=== PATIENT | male | born 1945 | race African-American/Black ===

== ENCOUNTER 2022-12-22 16:21 | Inpatient (IN) | payer OTHER ==
[~2022-12-22] VITALS: Ht 182.9 cm; Wt 60.8 kg
[2022-12-22] MEDS ORDERED: CLONIDINE 0.2MG TABLET PO ONE (17:00)
[2022-12-22] MEDS ORDERED: SODIUM CHLORIDE 0.9% 1,000 ML IV ONE (17:00)
[2022-12-22 19:57] LABS: BASOPHILS % 1.3 % (0.0-2.0); EOSINOPHILS % 0.8 % (0.0-5.0); HEMATOCRIT. 42.9 % (42.0-52.0); LYMPHOCYTES % 14.2 % (20.0-50.0); MEAN CORPUSCULAR HEMOGLOBIN 32.9 pg (28.0-32.0); MEAN CORPUSCULAR VOLUME 101.1 fL (80.0-94.0); MEAN PLATELET VOLUME 10.8 fl (7.4-10.4); MONOCYTES % 10.4 % (2.0-8.0); NEUTROPHILS % 73.3 % (40.0-76.0); PLATELET 185 x1000/uL (130-400); RED BLOOD CELL COUNT 4.25 mill/uL (4.7-6.1); RED CELL DISTRIBUTION WIDTH 16.3 % (11.6-14.6)
[2022-12-22 20:02] LABS: CHLORIDE 102 mEq/L (98-107)
[2022-12-22] MEDS ORDERED: CLONIDINE 0.1MG TABLET PO NR (21:00)
[2022-12-22] MEDS ORDERED: ASPIRIN 81MG TABLET PO ONE (21:15)
[2022-12-23] MEDS ORDERED: ONDANSETRON HCL 4MG/2ML INJ IV PRN (01:15)
[2022-12-23] MEDS ORDERED: MAGNESIUM/ALUMINUM HYDROXIDE/SIMETHICONE 30ML UDC PO PRN (01:15)
[2022-12-23] MEDS ORDERED: GUAIFENESIN 200MG/10ML SUGAR FREE UDC PO PRN (01:15)
[2022-12-23] MEDS ORDERED: DOCUSATE SODIUM 100MG CAPSULE PO PRN (01:15)
[2022-12-23] MEDS ORDERED: IPRATROPIUM/ALBUTEROL 0.5-3(2.5)MG/3ML NEB HHN PRN (01:15)
[2022-12-23] MEDS ORDERED: ACETAMINOPHEN 650MG SUPP PR PRN (01:15)
[2022-12-23] MEDS ORDERED: HYDRALAZINE 20MG/ML VIAL IV PRN (01:30)
[2022-12-23 02:30] VITALS: BP 191/91; PULSE 77; RESP 18; TEMP 97.8
[2022-12-23 04:00] VITALS: BP 164/70; PULSE 68; RESP 18; TEMP 98.2
[2022-12-23] MEDS: DEXT 5%/0.45% NACL 1000ML 1,000 ML IV SCH ×2 (05:45→14:53)
[2022-12-23] MEDS: HYDRALAZINE 20MG/ML VIAL IV SCH ×3 (07:30→21:33)
[2022-12-23 08:00] VITALS: BP 154/74; PULSE 79; RESP 20; TEMP 97.6
[2022-12-23] MEDS: AMLODIPINE 5MG TABLET PO SCH (08:35)
[2022-12-23] MEDS: FAMOTIDINE 20MG/2ML VIAL IV SCH (08:35)
[2022-12-23 10:04] LABS: BASOPHILS % 2.7 % (0.0-2.0); EOSINOPHILS % 0.6 % (0.0-5.0); HEMATOCRIT. 43.7 % (42.0-52.0); HEMOGLOBIN. 14.6 g/dL (14.0-18.0); LYMPHOCYTES % 13.1 % (20.0-50.0); MEAN CORPUSCULAR HEMOGLOBIN 33.5 pg (28.0-32.0); MEAN CORPUSCULAR VOLUME 100.4 fL (80.0-94.0); MEAN PLATELET VOLUME 11.6 fl (7.4-10.4); MONOCYTES % 11.2 % (2.0-8.0); NEUTROPHILS % 72.4 % (40.0-76.0); PLATELET 190 x1000/uL (130-400); RED BLOOD CELL COUNT 4.35 mill/uL (4.7-6.1); RED CELL DISTRIBUTION WIDTH 16.4 % (11.6-14.6)
[2022-12-23 10:17] LABS: INR 1.1; PROTHROMBIN TIME 11.3 sec (9.6-11.0)
[2022-12-23 10:23] LABS: CHLORIDE 101 mEq/L (98-107)
[2022-12-23 10:39] LABS: HDL CHOLESTEROL 94 mg/dL (40-59); LDL CHOLESTEROL 100 mg/dL (5-100); T4 FREE 0.96 ng/dL (0.76-1.46)
[2022-12-23 11:37] LABS: FOLIC ACID (FOLATE) SERUM 15.6 ng/mL (>5.38)
[2022-12-23 12:00] VITALS: BP 176/76; PULSE 82; RESP 20; TEMP 98
[2022-12-23 12:39] LABS: HEPATITIS B SURFACE ANTIGEN NEGATIVE
[2022-12-23 16:00] VITALS: BP 140/69; PULSE 71; RESP 20; TEMP 98
[2022-12-23 20:00] VITALS: BP 180/77; PULSE 82; RESP 20; TEMP 98.6
[2022-12-23] MEDS: ENOXAPARIN 30MG/0.3ML SYR SUBCUT SCH (20:23)
[2022-12-24] VITALS (15 sets, daily range): BP systolic 109–197; BP diastolic 52–99; PULSE 86–114; RESP 16–20; TEMP 97.7–101.8
[2022-12-24] MEDS: DEXT 5%/0.45% NACL 1000ML 1,000 ML IV SCH ×2 (01:00→14:27)
[2022-12-24] MEDS: HYDRALAZINE 20MG/ML VIAL IV SCH ×4 (01:30→21:09)
[2022-12-24 06:34] LABS: HEMATOCRIT. 44.6 % (42.0-52.0); HEMOGLOBIN. 15.3 g/dL (14.0-18.0); MEAN CORPUSCULAR VOLUME 99.1 fL (80.0-94.0); MEAN PLATELET VOLUME 11.5 fl (7.4-10.4); PLATELET 220 x1000/uL (130-400); RED CELL DISTRIBUTION WIDTH 16.6 % (11.6-14.6)
[2022-12-24] MEDS: AMLODIPINE 5MG TABLET PO SCH (08:23)
[2022-12-24] MEDS: FAMOTIDINE 20MG/2ML VIAL IV SCH (08:23)
[2022-12-24] MEDS: CLONIDINE 0.1MG TABLET PO PRN (21:09)
[2022-12-24] MEDS: ACETAMINOPHEN 325MG TABLET PO PRN (21:09)
[2022-12-24] MEDS: ENOXAPARIN 30MG/0.3ML SYR SUBCUT SCH (21:10)
[2022-12-25] VITALS (7 sets, daily range): BP systolic 154–185; BP diastolic 72–87; PULSE 83–111; RESP 20; TEMP 97.9–101.3
[2022-12-25 03:51] LABS: PLATELET ESTIMATE NORMAL
[2022-12-25] MEDS: HYDRALAZINE 20MG/ML VIAL IV SCH ×4 (03:53→17:52)
[2022-12-25] MEDS: AMLODIPINE 5MG TABLET PO SCH (08:44)
[2022-12-25] MEDS: CLONIDINE 0.1MG TABLET PO PRN ×2 (12:36→20:19)
[2022-12-25] MEDS: DEXT 5%/0.45% NACL 1000ML 1,000 ML IV SCH (12:36)
[2022-12-25 15:46] LABS: HEMATOCRIT. 43.6 % (42.0-52.0); HEMOGLOBIN. 14.4 g/dL (14.0-18.0); MEAN CORPUSCULAR VOLUME 99.8 fL (80.0-94.0); PLATELET 240 x1000/uL (130-400); RED BLOOD CELL COUNT 4.37 mill/uL (4.7-6.1); RED CELL DISTRIBUTION WIDTH 16.6 % (11.6-14.6)
[2022-12-25 16:26] LABS: PLATELET ESTIMATE NORMAL
[2022-12-25] MEDS: ENOXAPARIN 30MG/0.3ML SYR SUBCUT SCH (20:19)
[2022-12-25] MEDS: ACETAMINOPHEN 325MG TABLET PO PRN (20:19)
[2022-12-26] VITALS (12 sets, daily range): BP systolic 95–163; BP diastolic 55–89; PULSE 66–102; RESP 17–20; TEMP 97–98.4; O2SAT 98
[2022-12-26] MEDS: HYDRALAZINE 20MG/ML VIAL IV SCH ×4 (01:30→20:59)
[2022-12-26 05:19] LABS: HEMATOCRIT. 44.3 % (42.0-52.0); HEMOGLOBIN. 14.4 g/dL (14.0-18.0); MEAN CORPUSCULAR VOLUME 101.8 fL (80.0-94.0); PLATELET 201 x1000/uL (130-400); RED BLOOD CELL COUNT 4.35 mill/uL (4.7-6.1); RED CELL DISTRIBUTION WIDTH 16.8 % (11.6-14.6)
[2022-12-26] MEDS ORDERED: FAMOTIDINE 20MG/2ML VIAL IV SCH (09:00)
[2022-12-26] MEDS: AMLODIPINE 5MG TABLET PO SCH (10:30)
[2022-12-26 13:09] LABS: PLATELET ESTIMATE NORMAL
[2022-12-26] MEDS: DEXT 5%/0.45% NACL 1000ML 1,000 ML IV SCH (13:18)
[2022-12-26] MEDS: ENOXAPARIN 30MG/0.3ML SYR SUBCUT SCH (20:59)
== END 2022-12-26 23:53 | disposition short-term general hospital (02) | DRG 91 ==
LOC: ER 16:21 → 8WST 21:07 → EDBEDREQ 21:21 → ENRESERV 12-23 00:31 → 8WST 12-25 18:58
PROVIDERS: ADMIT Internal Medicine; ATTEND Internal Medicine
PROC: 5A1D70Z Performance of Urinary Filtration, Intermittent, Less than 6 Hours Per Day (ICD-10-PCS; principal; 2022-12-24)
PROC: 5A1D70Z Performance of Urinary Filtration, Intermittent, Less than 6 Hours Per Day (ICD-10-PCS; 2022-12-26)
DX: G92.8 Other toxic encephalopathy (principal); N18.6 End stage renal disease; U07.1 COVID-19; I12.0 Hypertensive chronic kidney disease with stage 5 chronic kidney disease or end stage renal disease; E11.22 Type 2 diabetes mellitus with diabetic chronic kidney disease; D63.1 Anemia in chronic kidney disease; D75.89 Other specified diseases of blood and blood-forming organs; G40.909 Epilepsy, unspecified, not intractable, without status epilepticus; R26.89 Other abnormalities of gait and mobility; Z99.2 Dependence on renal dialysis; Z86.73 Personal history of transient ischemic attack (TIA), and cerebral infarction without residual deficits; Z78.9 Other specified health status; Z79.899 Other long term (current) drug therapy
CPT/HCPCS: 36415; 71045; 80048; 80053; 80061; 82607; 82746; 84439; 84443; 84484; 85025; 86705; 86709; 86803; 87340; 87426; 90935; 92610; 93005; 93970; 97110; 97162; 97166; 97530; 99285; J0360; J1650; J3490; J7030

== ENCOUNTER 2024-03-04 16:13 | Emergency (ER) | payer OTHER ==
[~2024-03-04] VITALS: Ht 177.8 cm; Wt 68.0 kg
[2024-03-04 16:14] VITALS: O2SAT 99
[2024-03-04 16:52] LABS: DIFFERENTIAL COMMENT 0; EOSINOPHILS % 1.2 % (0.0-5.0); HEMATOCRIT. 32.7 % (42.0-52.0); HEMOGLOBIN. 10.8 g/dL (14.0-18.0); LYMPHOCYTES % 11.4 % (20.0-50.0); MEAN CORPUSCULAR HEMOGLOBIN 34.9 pg (28.0-32.0); MEAN CORPUSCULAR HGB CONC 33.1 g/dL (31.0-37.0); MEAN CORPUSCULAR VOLUME 105.5 fL (80.0-94.0); MEAN PLATELET VOLUME 9.8 fl (7.4-10.4); MONOCYTES % 12.6 % (2.0-8.0); NEUTROPHILS % 72.8 % (40.0-76.0); PLATELET 149 x1000/uL (130-400); RED CELL DISTRIBUTION WIDTH 16.6 % (11.6-14.6); WHITE BLOOD COUNT 8.9 x1000/uL (4.5-11.0)
[2024-03-04 16:57] LABS: POTASSIUM 3.4 mEq/L (3.5-5.1)
[2024-03-04 16:58] LABS: CALCIUM 8.5 mg/dL (8.7-10.4)
[2024-03-04 17:03] LABS: CREATININE 4.3 mg/dL (0.6-1.3)
[2024-03-04 20:00] VITALS: BP 123/79; PULSE 78; RESP 13; TEMP 37.00296; O2SAT 99
== END 2024-03-04 20:03 | disposition home or self-care (01) ==
LOC: ER 16:13
DX: T82.838A Hemorrhage due to vascular prosthetic devices, implants and grafts, initial encounter (principal); I12.0 Hypertensive chronic kidney disease with stage 5 chronic kidney disease or end stage renal disease; N18.6 End stage renal disease; Z99.2 Dependence on renal dialysis; Z88.5 Allergy status to narcotic agent; X58.XXXA Exposure to other specified factors, initial encounter
CPT/HCPCS: 36415; 80048; 85025; 93005; 93971; 99291